=== PATIENT | male | born 1935 | race Caucasian/White ===

== ENCOUNTER 2019-06-08 14:36 | Inpatient (IN) | payer MEDICARE ==
[~2019-06-08] VITALS: Ht 172.7 cm; Wt 63.5 kg
[2019-06-08] MEDS ORDERED: PANT20TA2 PO (15:46)
[2019-06-08] MEDS ORDERED: VALS160T2 PO (15:46)
[2019-06-08] MEDS ORDERED: MEMA10TA PO (15:46)
[2019-06-08] MEDS ORDERED: ACET-73 PO (15:46)
[2019-06-08] MEDS ORDERED: LEVO112T5 PO (15:46)
[2019-06-08] MEDS ORDERED: LEVE500T9 PO (15:46)
[2019-06-08] MEDS ORDERED: ASPI81TA31 PO (15:46)
[2019-06-08] MEDS ORDERED: DONE10TA44 PO (15:46)
[2019-06-08] MEDS ORDERED: GABA-532 PO (15:46)
[2019-06-08] MEDS ORDERED: ATOR20TA PO (15:46)
[2019-06-08 16:01] LABS: BASOPHILS % (AUTO) 0.3 % (0.0-2.0); EOSINOPHILS # (AUTO) 0.2 K/uL (0.0-0.7); EOSINOPHILS % (AUTO) 3.1 % (0.0-7.0); HEMATOCRIT 35.9 % (36.7-47.1); HEMOGLOBIN 12.3 g/dL (12.5-16.3); LYMPHOCYTES # (AUTO) 0.8 K/uL (20.0-40.0); LYMPHOCYTES % (AUTO) 11.5 % (20.5-51.5); MEAN CORPUSCULAR HEMOGLOBIN 31.5 uug (23.8-33.4); MEAN CORPUSCULAR HGB CONC 34 g/dL (32.5-36.3); MEAN CORPUSCULAR VOLUME 92.3 fL (73.0-96.2); MONOCYTES # (AUTO) 0.8 K/uL (2.0-10.0); MONOCYTES % (AUTO) 10.6 % (0.0-11.0); NEUTROPHILS # (AUTO) 5.3 K/uL (1.8-8.9); NEUTROPHILS % (AUTO) 74.5 % (38.5-71.5); PLATELET COUNT (AUTO) 208 K/uL (152-348); RED BLOOD CELL COUNT(AUTO) 3.89 MIL/uL (4.06-5.63); WHITE BLOOD COUNT (AUTO) 7.1 K/uL (3.6-10.2)
[2019-06-08 16:09] LABS: CARBON DIOXIDE 29 mmol/L (21-32); CHLORIDE 100 mmol/L (98-107); CREATININE 1.3 mg/dL (0.6-1.3); GLUCOSE 103 mg/dL (74-106); POTASSIUM 4.4 mmol/L (3.5-5.1); UREA NITROGEN, BLOOD 21 mg/dL (7-18)
[2019-06-08 16:10] LABS: *BILIRUBIN,URIN NEGATIVE (NEGATIVE); *BLOOD, URINE NEGATIVE (NEGATIVE); *CLARITY,URINE CLEAR (CLEAR); *COLOR,URINE YELLOW (YELLOW); *KETONES,URINE NEGATIVE (NEGATIVE); *UROBILINOGEN,URINE 0.2 E.U./dl (NORMAL); LEUKOCYTE ESTERASE ,URINE NEGATIVE (NEGATIVE); NITRITE, URINE NEGATIVE (NEGATIVE); PH,URINE 5.5 (5.0-8.0); UGLUCOSE NEGATIVE (NEGATIVE)
[2019-06-08 16:15] LABS: ETHANOL < 3 MG/DL (0-0)
[2019-06-08 16:18] LABS: ALANINE AMINOTRANSFERASE 16 U/L (16-63); ALKALINE PHOSPHATASE 110 U/L (50-136); ASPARTATE AMINOTRANSFERASE 20 U/L (15-37); BILIRUBIN,DIRECT 0.1 mg/dL (0.0-0.2); BILIRUBIN,TOTAL 0.3 mg/dL (0.2-1.0); TOTAL PROTEIN, SERUM 7.4 g/dL (6.4-8.2)
[2019-06-08 16:20] LABS: ACETAMINOPHEN < 2.0 ug/mL (10-30)
--- NOTE | 2019-06-08 16:20 | NUR ---
pt medically cleared. called karen mejia for psych eval.
[2019-06-08 16:24] LABS: *AMPHETAMINE, URINE NEGATIVE (NEGATIVE); *BARBITURATE, URINE NEGATIVE (NEGATIVE); *CANNABINOID, URINE NEGATIVE (NEGATIVE); *COCCAINE, URINE NEGATIVE (NEGATIVE); *OPIATE, URINE NEGATIVE (NEGATIVE); *PHENCYCLIDINE SCREEN,URINE NEGATIVE (NEGATIVE)
[2019-06-08 16:42] LABS: THYROID STIMULATING HORMONE 3.245 mIU/mL (0.358-3.740)
--- NOTE | 2019-06-08 17:00 | NUR ---
JV CONTRERAS, CRISIS OIL HEATERMAN, ETA 30 MIN.
--- NOTE | 2019-06-08 19:21 | NUR ---
HAND OFF AND SBAR RECEIVED FROM OUTGOING DAY SHIFT RN. ATTEMPTED TO GIVE HAND OFF TWICE BUT [facility] STATES THEY ARE STILL GETTING REPORT FROM INCOMING METAL BURRER RN PER CAL MRSA SWAB DONE
--- NOTE | 2019-06-08 19:33 | NUR ---
HAND OFF AND SBAR GIVEN TO [facility]HU FOOD WRITERCAPACITY PLANNER LUCA. AT RM 139 [facility] UNDER JENNIFER DAVIS/DAMON DAVIS TRANSPORTED ACCOMPANIED BY BRAEDEN WEI X2 UP, BED AT LOWEST POSITION
[2019-06-08 20:00] VITALS: BP 100/56
[2019-06-08] MEDS ORDERED: BLOOD SUGAR DIAGNOSTIC 1 EACH STRIP VI ONE (21:00)
[2019-06-08] MEDS ORDERED: MAG HYDROX/AL HYDROX/SIMETH 30 ML LIQUID UDC PO PRN (21:00)
[2019-06-08] MEDS ORDERED: MAGNESIUM HYDROXIDE 30 ML LIQUID UDC PO PRN (21:00)
[2019-06-08] MEDS: ACETAMINOPHEN 325 MG TABLET PO PRN (21:52)
[2019-06-08] MEDS: TEMAZEPAM 7.5 MG CAPSULE PO PRN (21:56)
--- NOTE | 2019-06-08 23:00 | NUR ---
received to care, from the emergency room, on a 72 hour hold, for gravely disabled, a transfer from [facility] (memory care unit). according to the hold, he was brought in to the [place] emergency room, by his son, diane, for increasing agitation/restlessness/confusion, at his facility. upon arrival on the unit, he appeared very confused. unable to answer questions, or signs papers. his gait was very unsteady, so he was placed in the wanda chair, for safety. he continued to be restless. snack given. PRN restoril was given at 2155, for insomnia. by 2229, he was falling asleep. as of 2299, her remains in bed, asleep. no distress noted. will continue to monitor closely.
[2019-06-09] MEDS: LORAZEPAM 0.5 MG TABLET PO PRN (01:40)
--- NOTE | 2019-06-09 01:40 | NUR ---
is now awake, and restless, attempting to climb out of bed. he was taken to the bathroom, but remains restless. PRN ativan was given. currently up in [facility] for safety, at nurses station. will continue to monitor closely.
--- NOTE | 2019-06-09 06:00 | NUR ---
is now awake. slept 5.5 hours, total. assisted with am care, and shower. currently up in wanda chair. no distress noted.
[2019-06-09 07:30] VITALS: BP 146/69
[2019-06-09] MEDS: Z GUARD REMEDY PASTE 57 GM TUBE TOP SCH ×2 (08:10→20:22)
--- NOTE | 2019-06-09 15:14 | NUR ---
WOUND CARE CONSULT: PT PRESENTS WITH VERY RED RASH TO UMBILICUS AREA, PRESENT ON ADMISSION. RECOMMENDATIONS MADE FOR SKIN CARE AND PROTECTION. DISCUSSED WITH NURSING STAFF. WILL SEE PRN. DAVIS IN AGREEMENT WITH PLAN OF CARE. Addendum: 06/09/19 at 1515 by MANISH CHEEK RN Amended: Links added. Addendum: 06/09/19 at 1516 by MANISH CHEEK RN CURRENT SEEMA SCORE IS 18.
[2019-06-09 16:00] VITALS: BP 107/59
[2019-06-09] MEDS: CLOTRIMAZOLE 1% CREAM 30 GM TUBE TOP SCH (16:55)
[2019-06-09] MEDS: ACETAMINOPHEN 325 MG TABLET PO PRN (20:05)
[2019-06-09] MEDS: GABAPENTIN 100 MG CAPSULE PO SCH (20:05)
[2019-06-09 20:56] VITALS: BP 134/68
[2019-06-09] MEDS: MEMANTINE HCL 5 MG TABLET PO SCH (22:00)
[2019-06-09] MEDS: DONEPEZIL 5 MG TABLET PO SCH (22:00)
[2019-06-09] MEDS: TEMAZEPAM 7.5 MG CAPSULE PO PRN (22:00)
--- NOTE | 2019-06-10 05:22 | NUR ---
Patient had uneventful night. Very cooperative with taking medications. Slept 8.30 hours and remains asleep at this time. Continuing to monitor for safety.
[2019-06-10 07:30] VITALS: BP 133/76
[2019-06-10] MEDS ORDERED: LEVOTHYROXINE SODIUM 112 MCG TABLET PO SCH (09:00)
[2019-06-10] MEDS: LEVETIRACETAM 500 MG TABLET PO SCH ×2 (09:09→16:47)
[2019-06-10] MEDS: ASPIRIN 81 MG TAB.CHEW PO SCH (09:09)
[2019-06-10] MEDS: ATORVASTATIN 20 MG TABLET PO SCH (09:09)
[2019-06-10] MEDS: GABAPENTIN 100 MG CAPSULE PO SCH ×2 (09:09→21:03)
[2019-06-10] MEDS: CLOTRIMAZOLE 1% CREAM 30 GM TUBE TOP SCH ×2 (09:13→16:48)
[2019-06-10] MEDS: LEVOTHYROXINE SODIUM 112 MCG TABLET PO SCH (09:21)
[2019-06-10] MEDS: MEMANTINE HCL 5 MG TABLET PO SCH ×2 (09:22→21:02)
[2019-06-10] MEDS: VALSARTAN 160 MG TABLET PO SCH (09:22)
[2019-06-10] MEDS: Z GUARD REMEDY PASTE 57 GM TUBE TOP SCH ×2 (09:28→21:03)
[2019-06-10] MEDS: PANTOPRAZOLE SODIUM 40 MG TABLET.DR PO SCH (10:16)
[2019-06-10 16:00] VITALS: BP 93/46
[2019-06-10] MEDS: SERTRALINE HCL 50 MG TABLET PO SCH (16:48)
[2019-06-10 20:00] VITALS: BP 121/60
[2019-06-10] MEDS: DONEPEZIL 5 MG TABLET PO SCH (21:02)
--- NOTE | 2019-06-10 21:45 | NUR ---
PATIENT ALERT/ORIENTED X1 WITH CONFUSION NOTED. PATIENT IS TOTAL ASSISTANCE WITH ADL'S AND AMBULATION. PATIENT COMPLAINT WITH MEDICATION. NO AGGRESSIVE OR COMBATIVE BEHAVIOR NOTED, WILL CONTINUE TO MONITOR. BED IN LOWEST POSITION, BED LOCKED, AND BED ALARM ON WHILE IN BED. PATIENT IS EASILY AGITATED REQUIRES REDIRECTION.
[2019-06-11] MEDS: PANTOPRAZOLE SODIUM 40 MG TABLET.DR PO SCH (06:47)
[2019-06-11] MEDS: LEVOTHYROXINE SODIUM 112 MCG TABLET PO SCH (06:47)
[2019-06-11 07:30] VITALS: BP 110/62
[2019-06-11] MEDS: MEMANTINE HCL 5 MG TABLET PO SCH ×2 (09:26→20:07)
[2019-06-11] MEDS: VALSARTAN 160 MG TABLET PO SCH (09:26)
[2019-06-11] MEDS: GABAPENTIN 100 MG CAPSULE PO SCH ×2 (09:26→20:07)
[2019-06-11] MEDS: ATORVASTATIN 20 MG TABLET PO SCH (09:27)
[2019-06-11] MEDS: CLOTRIMAZOLE 1% CREAM 30 GM TUBE TOP SCH ×2 (09:27→17:22)
[2019-06-11] MEDS: Z GUARD REMEDY PASTE 57 GM TUBE TOP SCH ×2 (09:27→20:09)
[2019-06-11] MEDS: ASPIRIN 81 MG TAB.CHEW PO SCH (09:31)
[2019-06-11] MEDS: LEVETIRACETAM 500 MG TABLET PO SCH ×2 (09:49→17:22)
[2019-06-11] MEDS ORDERED: PNEUMOCOCCAL 23-VAL P-SAC VAC 0.5 ML VIAL IM ONE (10:00)
--- NOTE | 2019-06-11 11:04 | NUR ---
Initial discharge plan Patient currently resides at [facility] memory Care Unit [[address] , [place] [address]; ] and will return when ready for discharge. DELMER spoke with Cassandra {admission's coordinator} at the facility who stated that patient will be able to return when discharged from [facility]. Patient's son, Horacio Hancock [[phone]] will be involved and contacted regarding updates on discharge and treatment plan. DELMER will work with the pt, family, and MD to form a safe and proper discharge plan.
--- NOTE | 2019-06-11 11:32 | NUR ---
FIREARMS REPORT: Digital Marketing Coordinator completed and submitted a [employer] firearms report for 5250 grave disability certification. A copy of report has been placed in patient chart.
--- NOTE | 2019-06-11 12:22 | NUR ---
Gps/Manager Code- Cooperative, pleasant, assisted with his meals, compliant with medications, making his needs known , ambulated to the bathroom continent, assisted with hygiene.
[2019-06-11] MEDS: SERTRALINE HCL 50 MG TABLET PO SCH (17:22)
--- NOTE | 2019-06-11 17:45 | NUR ---
Gps/Vacuum Extractor Operator- Showered late this pm, stayed up on his chair, smiles from time to time,pleasant affect compliant with his routine meds. assist. with meals occ. scoop, no coughing nor choking noted, . Bilateral lower eyelid redness, denies any eye discomfort, no burning sensations noted. Had been rediretable
[2019-06-11] MEDS: DONEPEZIL 5 MG TABLET PO SCH (20:07)
[2019-06-11 20:40] VITALS: BP 151/60
[2019-06-11] MEDS: TEMAZEPAM 7.5 MG CAPSULE PO PRN (21:57)
--- NOTE | 2019-06-12 06:16 | NUR ---
Patient slept 7 hour last night. UP a few times in the night to use the bathroom. Patient cooperative and pleasant. Takes medication without any difficulty. No acute distress noted. Monitoring patient for safety.
[2019-06-12] MEDS: LEVOTHYROXINE SODIUM 112 MCG TABLET PO SCH (06:24)
[2019-06-12] MEDS: PANTOPRAZOLE SODIUM 40 MG TABLET.DR PO SCH (06:25)
[2019-06-12 07:54] VITALS: BP 150/59
[2019-06-12] MEDS: LEVETIRACETAM 500 MG TABLET PO SCH ×2 (08:58→16:53)
[2019-06-12] MEDS: ATORVASTATIN 20 MG TABLET PO SCH (08:58)
[2019-06-12] MEDS: ASPIRIN 81 MG TAB.CHEW PO SCH (08:59)
[2019-06-12] MEDS: GABAPENTIN 100 MG CAPSULE PO SCH ×2 (08:59→20:13)
[2019-06-12] MEDS: VALSARTAN 160 MG TABLET PO SCH (08:59)
[2019-06-12] MEDS: LORAZEPAM 0.5 MG TABLET PO PRN (08:59)
[2019-06-12] MEDS: MEMANTINE HCL 5 MG TABLET PO SCH ×2 (09:00→20:13)
[2019-06-12] MEDS: CLOTRIMAZOLE 1% CREAM 30 GM TUBE TOP SCH ×2 (09:07→16:55)
[2019-06-12] MEDS: Z GUARD REMEDY PASTE 57 GM TUBE TOP SCH ×2 (09:12→20:13)
[2019-06-12 16:24] VITALS: BP 107/48
[2019-06-12] MEDS: SERTRALINE HCL 50 MG TABLET PO SCH (16:53)
[2019-06-12] MEDS: DONEPEZIL 5 MG TABLET PO SCH (20:12)
[2019-06-12 20:32] VITALS: BP 134/59
[2019-06-12] MEDS: TEMAZEPAM 7.5 MG CAPSULE PO PRN (22:34)
[2019-06-13] MEDS: PANTOPRAZOLE SODIUM 40 MG TABLET.DR PO SCH (06:01)
[2019-06-13] MEDS: LEVOTHYROXINE SODIUM 112 MCG TABLET PO SCH (06:01)
--- NOTE | 2019-06-13 06:17 | NUR ---
Patient slept 7 hours . No distress noted. Chelsea care done. Patient calm and cooperative. Will endorse shower to day shift.
[2019-06-13 07:49] VITALS: BP 138/67
[2019-06-13] MEDS: Z GUARD REMEDY PASTE 57 GM TUBE TOP SCH ×2 (08:06→21:16)
[2019-06-13] MEDS: CLOTRIMAZOLE 1% CREAM 30 GM TUBE TOP SCH ×2 (08:07→16:17)
[2019-06-13] MEDS: MEMANTINE HCL 5 MG TABLET PO SCH ×2 (08:44→21:16)
[2019-06-13] MEDS: LEVETIRACETAM 500 MG TABLET PO SCH ×2 (08:44→16:16)
[2019-06-13] MEDS: ATORVASTATIN 20 MG TABLET PO SCH (08:44)
[2019-06-13] MEDS: ASPIRIN 81 MG TAB.CHEW PO SCH (08:44)
[2019-06-13] MEDS: GABAPENTIN 100 MG CAPSULE PO SCH ×2 (08:44→21:16)
[2019-06-13] MEDS: VALSARTAN 160 MG TABLET PO SCH (08:45)
[2019-06-13] MEDS: LORAZEPAM 0.5 MG TABLET PO PRN (13:14)
[2019-06-13] MEDS: SERTRALINE HCL 50 MG TABLET PO SCH (16:16)
[2019-06-13 16:43] VITALS: BP 113/58
[2019-06-13 20:12] VITALS: BP 116/56
[2019-06-13] MEDS: DONEPEZIL 5 MG TABLET PO SCH (21:15)
--- NOTE | 2019-06-13 22:30 | NUR ---
RECEIVED PATIENT RESTING IN BED.HE IS MED COMPLIANT .ABLE TO TALK BUT NOT LOUDLY ENOUGH TO BE HEARD.NO COMPLIANT OF PAIN OR DISCOMFORT MADE.VISUAL CHECKS MADE ON HIM FOR SAFETY, WILL CONTINUE TO MONITOR.
[2019-06-14] MEDS: PANTOPRAZOLE SODIUM 40 MG TABLET.DR PO SCH (06:10)
[2019-06-14] MEDS: LEVOTHYROXINE SODIUM 112 MCG TABLET PO SCH (06:10)
--- NOTE | 2019-06-14 06:42 | NUR ---
SLEPT INTERMITTENTLY FOR 04;45HOURS.BED BATH GIVEN. MEDS COMPLIANT.
[2019-06-14 07:30] VITALS: BP 126/65
[2019-06-14] MEDS: LORAZEPAM 0.5 MG TABLET PO PRN (08:58)
[2019-06-14] MEDS: GABAPENTIN 100 MG CAPSULE PO SCH ×2 (09:11→20:19)
[2019-06-14] MEDS: LEVETIRACETAM 500 MG TABLET PO SCH ×2 (09:11→16:40)
[2019-06-14] MEDS: ATORVASTATIN 20 MG TABLET PO SCH (09:11)
[2019-06-14] MEDS: ASPIRIN 81 MG TAB.CHEW PO SCH (09:11)
[2019-06-14] MEDS: MEMANTINE HCL 5 MG TABLET PO SCH ×2 (09:11→20:19)
[2019-06-14] MEDS: VALSARTAN 160 MG TABLET PO SCH (09:12)
[2019-06-14] MEDS: CLOTRIMAZOLE 1% CREAM 30 GM TUBE TOP SCH ×2 (09:12→16:40)
[2019-06-14] MEDS: Z GUARD REMEDY PASTE 57 GM TUBE TOP SCH ×2 (09:12→20:24)
[2019-06-14 13:12] LABS: BASOPHILS % (AUTO) 0.2 % (0.0-2.0); EOSINOPHILS # (AUTO) 0.2 K/uL (0.0-0.7); EOSINOPHILS % (AUTO) 2.1 % (0.0-7.0); HEMATOCRIT 38.8 % (36.7-47.1); HEMOGLOBIN 12.9 g/dL (12.5-16.3); LYMPHOCYTES # (AUTO) 0.7 K/uL (20.0-40.0); LYMPHOCYTES % (AUTO) 8.3 % (20.5-51.5); MEAN CORPUSCULAR HEMOGLOBIN 30.9 uug (23.8-33.4); MEAN CORPUSCULAR HGB CONC 33 g/dL (32.5-36.3); MEAN CORPUSCULAR VOLUME 93.1 fL (73.0-96.2); MONOCYTES # (AUTO) 1.1 K/uL (2.0-10.0); MONOCYTES % (AUTO) 13.5 % (0.0-11.0); NEUTROPHILS % (AUTO) 75.9 % (38.5-71.5); PLATELET COUNT (AUTO) 228 K/uL (152-348); RED BLOOD CELL COUNT(AUTO) 4.17 MIL/uL (4.06-5.63); WHITE BLOOD COUNT (AUTO) 7.9 K/uL (3.6-10.2)
[2019-06-14 13:26] LABS: ALANINE AMINOTRANSFERASE 20 U/L (16-63); ALKALINE PHOSPHATASE 111 U/L (50-136); ASPARTATE AMINOTRANSFERASE 24 U/L (15-37); BILIRUBIN,TOTAL 0.4 mg/dL (0.2-1.0); CARBON DIOXIDE 26 mmol/L (21-32); CHLORIDE 93 mmol/L (98-107); GLUCOSE 119 mg/dL (74-106); MAGNESIUM 1.8 mg/dL (1.8-2.4); POTASSIUM 4.4 mmol/L (3.5-5.1); TOTAL PROTEIN, SERUM 7.2 g/dL (6.4-8.2); UREA NITROGEN, BLOOD 25 mg/dL (7-18)
[2019-06-14 15:50] VITALS: BP 91/41
[2019-06-14] MEDS: SERTRALINE HCL 50 MG TABLET PO SCH (16:40)
[2019-06-14 20:00] VITALS: BP 100/50
[2019-06-14] MEDS: DONEPEZIL 5 MG TABLET PO SCH (20:19)
[2019-06-14] MEDS: TEMAZEPAM 7.5 MG CAPSULE PO PRN (23:57)
[2019-06-15] MEDS: LEVOTHYROXINE SODIUM 112 MCG TABLET PO SCH (06:15)
[2019-06-15] MEDS: PANTOPRAZOLE SODIUM 40 MG TABLET.DR PO SCH (06:15)
[2019-06-15 07:30] VITALS: BP 133/69
[2019-06-15] MEDS: MEMANTINE HCL 5 MG TABLET PO SCH (08:50)
[2019-06-15] MEDS: ASPIRIN 81 MG TAB.CHEW PO SCH (08:50)
[2019-06-15] MEDS: ATORVASTATIN 20 MG TABLET PO SCH (08:51)
[2019-06-15] MEDS: VALSARTAN 160 MG TABLET PO SCH (08:51)
[2019-06-15] MEDS: GABAPENTIN 100 MG CAPSULE PO SCH (08:51)
[2019-06-15] MEDS: LEVETIRACETAM 500 MG TABLET PO SCH ×2 (08:51→16:56)
[2019-06-15] MEDS: Z GUARD REMEDY PASTE 57 GM TUBE TOP SCH (09:09)
[2019-06-15] MEDS: CLOTRIMAZOLE 1% CREAM 30 GM TUBE TOP SCH ×2 (09:09→16:58)
--- NOTE | 2019-06-15 13:57 | NUR ---
Discharge notes Patient will be discharged back to [facility] [[address] , [place] [address]; ]. [employer] is scheduled for 7:00PM today, confirmed with Felice with [facility] ho confirmed transportation for patient back to facility. Spoke with Cassandra [Admin Coordinator] at the facility who states they are ready to accept the patient back today. Patient is aware and agreeable with discharge plans. Patient is alert and oriented x3, is not able to plan for self-care, and denies any suicidal or homicidal ideations. Patient�s son, Horacio Hancock [[phone]] is made aware and agreeable regarding discharge plans. Patient will follow-up at the facility with Dr. Mely Krishnamurthy (Primary Care Physician) and Dr. Lorna Ann (Psychiatrist). Patient was provided with outpatient mental health resources to [facility] .
[2019-06-15 15:23] VITALS: BP 105/63
--- NOTE | 2019-06-15 16:15 | NUR ---
GPS: Nursing Notes: Alissa Bailey Report: Staff not able to give report to [place] due to being put on hold for long time, then transfer again, witness DELMER Ken and Tavares charge nurse, psych social worker Suellen told staff that Cassandra, Admin. Coordinator will call unit for report, continue to monitor for safety, continue with discharge plan.
[2019-06-15] MEDS: SERTRALINE HCL 50 MG TABLET PO SCH (16:56)
[2019-06-15] MEDS ORDERED: SULFACETAMIDE SOD 10% OPHT DR 15 ML BOTTLE EACHEYE SCH (17:00)
--- NOTE | 2019-06-15 18:03 | NUR ---
GPS: Nursing Notes: Discharge Notes: Patient is awake and responding to his name, cooperative with nursing care, compliant with his medications, following staff directions, denies any SI/HI, denies any AH/VH, denies any pain or discomfort, discharge to [facility] at [address] [place] [address] , transported to facility via [employer], regional company flatbed truck driver's name: Cassandra Nunez, Admin. Coordinator has not call the unit yet, staff waiting for her call. Patient�s son, Horacio Hancock [[phone]] is made aware and agreeable regarding discharge plans. Patient will follow-up at the facility with Dr. Mely Krishnamurthy (Primary Care Physician) and Dr. Lorna Ann (Psychiatrist). Patient was provided with outpatient mental health resources to [facility] .
== END 2019-06-15 18:03 | DRG 885 ==
LOC: ER 14:36 → GPS 19:30
PROVIDERS: ADMIT Psychiatry & Neurology Psychosomatic Medicine; ATTEND Nurse Practitioner Acute Care
DX: F33.2 Major depressive disorder, recurrent severe without psychotic features (principal); F01.50 Vascular dementia, unspecified severity, without behavioral disturbance, psychotic disturbance, mood disturbance, and anxiety; R47.01 Aphasia; Z91.83 Wandering in diseases classified elsewhere; E03.9 Hypothyroidism, unspecified; E78.5 Hyperlipidemia, unspecified; G30.9 Alzheimer's disease, unspecified; F02.80 Dementia in other diseases classified elsewhere, unspecified severity, without behavioral disturbance, psychotic disturbance, mood disturbance, and anxiety; E86.0 Dehydration; Z86.73 Personal history of transient ischemic attack (TIA), and cerebral infarction without residual deficits; H10.9 Unspecified conjunctivitis; Z85.01 Personal history of malignant neoplasm of esophagus; Z91.81 History of falling; I10 Essential (primary) hypertension; Z79.899 Other long term (current) drug therapy; Z79.82 Long term (current) use of aspirin; T14.8XXA Other injury of unspecified body region, initial encounter; X58.XXXA Exposure to other specified factors, initial encounter; Y92.89 Other specified places as the place of occurrence of the external cause; R13.10 Dysphagia, unspecified; R79.89 Other specified abnormal findings of blood chemistry
CPT/HCPCS: 36415; 70030-TC; 70450; 80307; 83735; 84443; 85025; 85730; 90732; 93005; A4663; G0480; G0480-TC